=== PATIENT | female | born 1950 | race Caucasian/White ===

== ENCOUNTER 2018-11-30 12:22 | Observation (INO) ==
[2018-11-30] MEDS ORDERED: ASPIRIN 325 MG TABLET PO STA (12:47)
[2018-11-30] MEDS ORDERED: ONDANSETRON 4 MG/2 ML VIAL IV PRN ×2 (12:47→15:04)
[2018-11-30] MEDS ORDERED: NITROGLYCERIN 2% OINT 1 INCH/GM PACK TOP STA (12:53)
[2018-11-30 13:32] LABS: Basophils # 0.1 10*3/uL (0.0-0.2); Basophils % 0.6 % (0.0-0.8); Eosinophils % 0.5 % (0.00-10.9); Hematocrit 42.5 VOL% (35.7-47.0); Hemoglobin 14.1 GM/DL (12.0-16.0); Immature Granulocytes % 0.3 %; Immature Granulocytes Absolute 0.02 #; Lymphocytes # 2.1 10*3/uL (1.4-4.0); Lymphocytes % 26.3 % (21.3-54.2); Mean Corpuscular HGB Conc 33.2 GM/DL (32-36); Mean Corpuscular Hemoglobin 28 PG (27-34); Mean Corpuscular Volume 84.7 FL (87-102); Mean Platelet Volume 9.5 FL (9.6-12.0); Monocytes # 0.6 10*3/uL (0.11-0.8); Monocytes % 7.1 % (1.7-12.7); Neutrophils # 5.2 10*3/uL (1.4-7.4); Neutrophils % 65.2 % (38.7-73.9); Platelet Count 302 T/CUMM (130-400); Red Blood Count 5.02 MC/CUMM (3.8-5.5); Red Cell Distribution Width 12.7 % (9.3-17.3); White Blood Count 7.9 T/CUMM (4-12)
[2018-11-30 13:48] LABS: PT Patient Result 10.5 SECS; Partial Thromboplastin Time 25.3 SECS (0-40)
[2018-11-30 14:02] LABS: Albumin 4.3 G/DL (3.4-5.0); Bilirubin,Total 0.6 MG/DL (0.2-1.0); Calcium 9.3 MG/DL (8.5-10.1); Osmolality,Calculated 278.5 MOS/KG (273-304); Potassium 3.7 MMOL/L (3.5-5.1); Total Protein 7.7 G/DL (6.4-8.3)
[2018-11-30] MEDS ORDERED: ZALEPLON 5 MG CAPSULE PO PRN (15:04)
[2018-11-30] MEDS ORDERED: BISACODYL 5 MG TABLET PO PRN (15:04)
[2018-11-30] MEDS ORDERED: ACETAMINOPHEN 500 MG TABLET PO PRN (15:08)
[2018-11-30] MEDS ORDERED: ATORVASTATIN 40 MG TABLET PO SCH (21:00)
[2018-11-30] MEDS: amLODIPine 10 MG TABLET PO SCH (21:27)
[2018-11-30] MEDS: LISINOPRIL 10 MG TABLET PO SCH (21:27)
[2018-12-01 08:00] VITALS: BP 116/58
[2018-12-01] MEDS ORDERED: PARoxetine 10 MG TABLET PO SCH (09:00)
[2018-12-01] MEDS ORDERED: ASPIRIN EC 81 MG TABLET PO SCH (09:00)
[2018-12-01] MEDS ORDERED: busPIRone 10 MG TABLET PO SCH (09:00)
[2018-12-01 09:05] LABS: Apearance,Urine Slightly Hazy (Clear); Bacteria,Urine Occasional /HPF (Few); Bilirubin,Urine Negative (Negative); Blood, Urine Negative (Negative); Glucose,Urine (UA) Negative (Negative); Hyaline Casts,Urine 10 /LPF (0-3); Ketones,Urine Negative (Negative); Mucus,Urine Occasional /LPF (Occasional); Nitrite,Urine Negative (Negative); Protein,Urine Negative; RBC,Urine <1 /HPF (0-4); Squamous Epithelial Cell,Urine Occasional /HPF (0-10); Urine Color Yellow (Yellow); Urine Specific Gravity 1.021 (1.001-1.035); Urine Urobilinogen < 2.0 EU/DL (0.2-1.0); WBC,Urine 6 /HPF (0-6)
[2018-12-01] MEDS: LISINOPRIL 10 MG TABLET PO SCH (09:18)
[2018-12-01] MEDS: amLODIPine 10 MG TABLET PO SCH (09:19)
== END 2018-12-01 10:14 | disposition home or self-care (01) ==
LOC: EDBD → EDUNIT# → N.EDINP 12:22 → N.ED 12:22 → N.TELES 19:30
PROVIDERS: ADMIT Internal Medicine Cardiovascular Disease; ATTEND Internal Medicine Cardiovascular Disease